=== PATIENT | female | born 2000 | race Caucasian/White ===

== ENCOUNTER 2023-10-30 15:51 | Emergency (ER) | payer OTHER ==
[~2023-10-30] VITALS: Ht 180.3 cm; Wt 56.8 kg
[2023-10-30 15:58] VITALS: TEMP 98
[2023-10-30] MEDS ORDERED: Ketorolac 15 MG/ML VIAL IM ONE (16:30)
[2023-10-30] MEDS ORDERED: LORazepam 0.5 MG TAB PO ONE (16:30)
[2023-10-30 17:01] LABS: BASO # 0.1 K/mm3 (0.0-0.2); BASO % 0.8 % (0.0-2.0); EOS # 0.1 K/mm3 (0.0-0.7); EOS % 1.9 % (0.0-4.0); GRAN # 3.1 K/mm3 (1.4-6.5); GRAN % 51.7 % (42.2-75.2); HEMATOCRIT 40.3 % (37.0-47.0); HEMOGLOBIN 13.5 g/dl (12.5-16.0); LYMPH % 33.8 % (20.0-51.0); MEAN CELL VOLUME 92 fl (80.0-100.0); MEAN CORPUSCULAR HEMOGLOBIN 31 pg (27-31); MEAN CORPUSCULAR HGB CONC 34 g/dl (33.0-37.0); MEAN PLATELET VOLUME 9.8 fl (7.4-10.4); MONO # 0.7 K/mm3 (0.1-0.6); MONO % 11.6 % (1.7-9.3); PLATELET COUNT 220 K/mm3 (130-400); RED BLOOD COUNT 4.38 M/mm3 (4.10-5.30); REDCELL DISTRIBUTION WIDTH-CV 11.8 % (11.5-14.5)
[2023-10-30 17:22] LABS: CALCIUM 8.7 mg/dL (8.4-10.2); CREATININE, serum 0.69 mg/dL (0.57-1.11); POTASSIUM 4.1 mEq/L (3.5-4.5)
[2023-10-30 17:59] VITALS: BP 123/85; PULSE 68
== END 2023-10-30 18:05 | disposition home or self-care (01) ==
LOC: COL.ER 15:51
PROVIDERS: Physician Assistant
DX: F45.8 Other somatoform disorders (principal); F17.290 Nicotine dependence, other tobacco product, uncomplicated
CPT/HCPCS: J1885